=== PATIENT | female | born 1955 | race Caucasian/White ===

== ENCOUNTER 2019-03-24 12:10 | Emergency (ER) | payer MEDICARE, OTHER ==
[~2019-03-24] VITALS: Ht 152.4 cm; Wt 73.0 kg
[2019-03-24] MEDS ORDERED: PLEASE ENTER HEIGHT AND WEIGHT MC SCH (12:30)
[2019-03-24] MEDS ORDERED: ONDANSETRON 2MG/ML, 2ML IVPush ONE (12:30)
[2019-03-24] MEDS ORDERED: MORP60TA22 PO (12:35)
[2019-03-24] MEDS ORDERED: OXYC10TA6 PO (12:36)
[2019-03-24] MEDS ORDERED: HYDR12.517 PO (12:37)
[2019-03-24] MEDS ORDERED: TIZA4TAB PO (12:37)
[2019-03-24] MEDS ORDERED: MONT10TA9 PO (12:38)
[2019-03-24] MEDS ORDERED: ROSU20TA2 PO (12:38)
[2019-03-24] MEDS ORDERED: METO-99 PO (12:39)
[2019-03-24] MEDS ORDERED: BUPR-173 PO (12:39)
[2019-03-24] MEDS ORDERED: ALBU90AE IH (12:40)
--- NOTE | 2019-03-24 12:40 | NUR ---
PT TO XRAY AT THIS TIME.
[2019-03-24 12:52] LABS: BASOPHILS # (AUTO) 0.05 x10^3/uL (0-0.1); BASOPHILS % (AUTO) 1 % (0-1); EOSINOPHILS # (AUTO) 0.13 x10^3/uL (0-0.4); EOSINOPHILS % (AUTO) 2 % (1-7); LYMPHOCYTES % (AUTO) 14 % (22-44); MD NO; MEAN CORPUSCULAR HGB CONC 32.7 g/dL (32.4-35.8); MEAN CORPUSCULAR VOLUME 79.3 fL (80-100); MEAN PLATELET VOLUME 8.7 fL (7.4-10.4); MONOCYTES # (AUTO) 0.32 x10^3/uL (0.2-0.8); MONOCYTES % (AUTO) 4 % (2-9); NEUTROPHILS # (AUTO) 6.96 x10^3/uL (1.8-6.8); NEUTROPHILS % (AUTO) 80 % (42-75); PLATELET COUNT 279 x10^3/uL (130-400); RED CELL DISTRIBUTION WIDTH 15.6 % (9.6-15.2)
[2019-03-24 13:01] LABS: ALBUMIN 3.6 g/dL (3.4-5.0); ANION GAP 6 mmol/L (5-15); CALCIUM 9.3 mg/dL (8.5-10.1); CHLORIDE 108 mmol/L (98-107)
[2019-03-24 13:07] LABS: ALANINE AMINOTRANSFERASE 22 U/L (12-78); ALKALINE PHOSPHATASE 125 U/L (45-117); BILIRUBIN,TOTAL 0.3 mg/dL (0.2-1.0); TOTAL PROTEIN 8.3 g/dL (6.4-8.2); TROPONIN I < 0.015 ng/mL (0.000-0.045)
[2019-03-24 13:11] LABS: RAPID INFLUENZA A Negative (Negative); RAPID INFLUENZA B Negative (Negative)
[2019-03-24 13:37] VITALS: BP 69/69
--- NOTE | 2019-03-24 13:37 | NUR ---
PT RESTING IN [facility], UNABLE TO OBTAIN IV ACCESS AFTER MULT ATTEMPTS AT THIS TIME. RN TO GET US PLACEMENT FOR IV
[2019-03-24] MEDS ORDERED: ONDANSETRON 2MG/ML, 2ML ONE (14:01)
== END 2019-03-24 14:33 | disposition home or self-care (01) ==
LOC: ED 14:10
DX: A08.4 Viral intestinal infection, unspecified (principal); I25.2 Old myocardial infarction; I10 Essential (primary) hypertension; K21.9 Gastro-esophageal reflux disease without esophagitis; J44.9 Chronic obstructive pulmonary disease, unspecified
CPT/HCPCS: 36415; 74022; 80053; 83690; 84484; 85025; 87400; 93005; 99284

== ENCOUNTER 2019-11-12 12:42 | Emergency (ER) | payer MEDICARE ==
[~2019-11-12] VITALS: Ht 152.4 cm; Wt 77.0 kg
[~2019-11-12 12:42] MED LIST: ALBU90AE IH; BUPR-173 PO; HYDR12.517 PO; METO-99 PO; MONT10TA9 PO; MORP60TA22 PO; OXYC10TA6 PO; ROSU20TA2 PO; TIZA4TAB2 PO
[2019-11-12 13:21] LABS: BASOPHILS # (AUTO) 0.05 x10^3/uL (0-0.1); BASOPHILS % (AUTO) 1 % (0-1); EOSINOPHILS # (AUTO) 0.09 x10^3/uL (0-0.4); EOSINOPHILS % (AUTO) 1 % (1-7); LYMPHOCYTES # (AUTO) 1.62 x10^3/uL (1-3.4); LYMPHOCYTES % (AUTO) 19 % (22-44); MD NO; MEAN CORPUSCULAR HEMOGLOBIN 26.8 pg (27.0-34.8); MEAN CORPUSCULAR HGB CONC 31.8 g/dL (32.4-35.8); MEAN PLATELET VOLUME 8.6 fL (7.4-10.4); MONOCYTES % (AUTO) 6 % (2-9); NEUTROPHILS # (AUTO) 6.43 x10^3/uL (1.8-6.8); NEUTROPHILS % (AUTO) 74 % (42-75); PLATELET COUNT 311 x10^3/uL (130-400); RED BLOOD COUNT 5.61 x10^6/uL (3.82-5.3); RED CELL DISTRIBUTION WIDTH 14.7 % (9.6-15.2)
[2019-11-12 13:33] LABS: ALANINE AMINOTRANSFERASE 22 U/L (12-78); ALBUMIN 3.6 g/dL (3.4-5.0); ANION GAP 6 mmol/L (5-15); CALCIUM 9.4 mg/dL (8.5-10.1); CHLORIDE 106 mmol/L (98-107)
[2019-11-12 13:37] LABS: ALKALINE PHOSPHATASE 134 U/L (45-117); BILIRUBIN,TOTAL 0.4 mg/dL (0.2-1.0); TOTAL PROTEIN 8.6 g/dL (6.4-8.2); TROPONIN I < 0.015 ng/mL (0.000-0.045)
--- NOTE | 2019-11-12 14:05 | NUR ---
Pt to 25 from lobby
--- NOTE | 2019-11-12 14:25 | NUR ---
PT PRESENTING TO ER FOR NECK AND SHOULDER PAIN THAT STARTED YESTERDAY AFTER FEELING A POP, RADIATING TO LOWER SKULL CAUSING RIVERO. BURNING CP MID UPPER CHEST INTERMITTENT TODAY. N/V ALSO MID LOWER ABD CRAMPING, LBM TODAY, NORMAL. PT STS PAIN PUMP IN PLACE BUT NOT HELPING CURRENT PAIN. CONNECTED TO ALL MONITORING, HTN AT THIS TIME. FAMILY AT BEDSIDE. CALL LIGHT WITHIN REACH. MD AT BEDSIDE FOR ASSESSMENT. AWAITING FURTHER ORDERS AT THIS TIME. PIT ORDERS COMPLETED.
--- NOTE | 2019-11-12 14:32 | NUR ---
ONE BOUT OF VOMITTING IN ROOM, UPDATEDMIGUEL REQUESTED.
[2019-11-12] MEDS ORDERED: ONDANSETRON ODT 4 MG ONE (14:35)
[2019-11-12] MEDS ORDERED: HYDROmorphone 1 MG/ML, 1ML INJ ONE (14:36)
--- NOTE | 2019-11-12 14:41 | NUR ---
PT MEDICATED PER MAR FOR PAIN AND NAUSEA. WILL CONTINUE TO MONITOR
[2019-11-12] MEDS ORDERED: ONDANSETRON ODT 4 MG PO ONE (15:00)
[2019-11-12] MEDS ORDERED: HYDROmorphone 2 MG/ML, 1ML IM ONE (15:00)
--- NOTE | 2019-11-12 15:47 | NUR ---
TASK RN: BEDSIDE REPORT TO DAMIEN ACUÑA.
--- NOTE | 2019-11-12 15:57 | NUR ---
PT SLEEPING IN ROOM WITH FAMILY AT BEDSIDE, STS NAUSEA AND RIVERO ARE MUCH BETTER AFTER MEDS. MD UPDATED, AWAITING RECHECK
[2019-11-12 16:10] VITALS: BP 140/54
== END 2019-11-12 16:23 | disposition home or self-care (01) ==
LOC: ED 16:00
DX: G43.909 Migraine, unspecified, not intractable, without status migrainosus (principal); M54.2 Cervicalgia; I10 Essential (primary) hypertension; J44.9 Chronic obstructive pulmonary disease, unspecified; K21.9 Gastro-esophageal reflux disease without esophagitis; I25.2 Old myocardial infarction
CPT/HCPCS: 36415; 70450; 71046; 72125; 80053; 84484; 85025; 93005; 96372; 99284; J1170; Q0162

== ENCOUNTER 2021-03-19 10:56 | Emergency (ER) | payer MEDICARE ==
[~2021-03-19] VITALS: Ht 162.6 cm; Wt 92.8 kg
[~2021-03-19 10:56] MED LIST changes: +MONT10TA17 PO; -MONT10TA9 PO
[2021-03-19] MEDS ORDERED: SODIUM CHLORIDE FLUSH 10ML SYR IVF ONE (11:30)
[2021-03-19] MEDS ORDERED: HYDROmorphone 1 MG/ML, 1ML INJ IV ONE (11:30)
[2021-03-19] MEDS ORDERED: ONDANSETRON 2MG/ML, 2ML IVPush ONE ×2 (11:30→16:00)
[2021-03-19] MEDS ORDERED: SODIUM CHLORIDE 0.9% 1,000ML IVBOLUS ONE (11:30)
--- NOTE | 2021-03-19 11:33 | NUR ---
PT TO XRAY.
[2021-03-19] MEDS ORDERED: ONDANSETRON 2MG/ML, 2ML ONE ×2 (11:45→15:44)
[2021-03-19] MEDS ORDERED: HYDROmorphone 2 MG/ML, 1ML ONE (11:45)
--- NOTE | 2021-03-19 11:50 | NUR ---
PT BACK FROM XRAY. PT MEDICATED PER ERP ORDER FOR PAIN AND NAUSEA, NS BOLUS INFUSING. CALL LIGHT WITHIN REACH, FAMILY AT BS.
--- NOTE | 2021-03-19 11:59 | NUR ---
OXYGEN PLACED AT 3LITERS VIA NC AFTER PULSE OX DIPPED TO 80%. IMPROVEMENT TO 97% AT THIS TIME. PT CONTINUES TO BE NAUSEATED, ERP NOTIFIED. LAB IN TO DRAW.
[2021-03-19 12:00] LABS: MICROSCOPIC AUTO
[2021-03-19 12:11] LABS: BASOPHILS % (AUTO) 1 % (0-1); EOSINOPHILS % (AUTO) 0 % (1-7); LYMPHOCYTES % (AUTO) 13 % (22-44); MEAN CORPUSCULAR HEMOGLOBIN 26.5 pg (27.0-34.8); MEAN CORPUSCULAR HGB CONC 32.5 g/dL (32.4-35.8); MEAN PLATELET VOLUME 8.3 fL (7.4-10.4); MONOCYTES % (AUTO) 4 % (2-9); NEUTROPHILS % (AUTO) 82 % (42-75); PLATELET COUNT 294 x10^3/uL (130-400); RED BLOOD COUNT 5.44 x10^6/uL (3.82-5.3); RED CELL DISTRIBUTION WIDTH 15.1 % (9.6-15.2)
[2021-03-19 12:15] LABS: MD NO
[2021-03-19 12:22] LABS: ALANINE AMINOTRANSFERASE 20 U/L (12-78); ALBUMIN 3.3 g/dL (3.4-5.0); ANION GAP 4 mmol/L (5-15); CALCIUM 9.1 mg/dL (8.5-10.1); CHLORIDE 105 mmol/L (98-107)
[2021-03-19 12:27] LABS: ALKALINE PHOSPHATASE 133 U/L (45-117); BILIRUBIN,TOTAL 0.5 mg/dL (0.2-1.0); CREATININE 0.87 mg/dL (0.55-1.02); TOTAL PROTEIN 8.2 g/dL (6.4-8.2); TROPONIN I < 0.015 ng/mL (0.000-0.045)
--- NOTE | 2021-03-19 12:33 | NUR ---
ATTEMPT TO CALL REPORT, RECEIVING RN IN RAPID RESPONSE, WILL CALL BACK.
[2021-03-19] MEDS ORDERED: POTASSIUM CHLORIDE 20 MEQ PACKET PO ONE (13:00)
[2021-03-19] MEDS ORDERED: PROMETHAZINE 25 MG/ML, 1ML IM ONE (13:00)
[2021-03-19] MEDS ORDERED: POTASSIUM CHLORIDE 20 MEQ PACKET ONE (13:12)
[2021-03-19] MEDS ORDERED: PROMETHAZINE 25 MG/ML, 1ML ONE (13:12)
--- NOTE | 2021-03-19 13:25 | NUR ---
PT UP/AMBULATORY TO BR. PT MEDICATED FOR PERSISTENT PAIN, N/V, HTN. CALL LIGHT WITHIN REACH, FAMILY AT BS
--- NOTE | 2021-03-19 14:01 | NUR ---
PT FEELING BETTER, LESS PAIN AND NAUSEA, ABLE TO GET SOME PO MEDS DOWN. VSS/UPDATED IN COMPUTER. CALL LIGHT WITHIN REACH.
--- NOTE | 2021-03-19 14:49 | NUR ---
ADD ON ORDER FOR CT AND MED.
[2021-03-19] MEDS ORDERED: hydrALAzine 20 MG/ML, 1ML IV ONE (15:00)
[2021-03-19 15:42] VITALS: BP 154/70
--- NOTE | 2021-03-19 15:43 | NUR ---
CT READ BACK, PT FOR RECHECK.
== END 2021-03-19 17:05 | disposition home or self-care (01) ==
LOC: ED 12:22
DX: R10.84 Generalized abdominal pain (principal); G89.29 Other chronic pain; M54.5 Low back pain; R07.89 Other chest pain; F11.20 Opioid dependence, uncomplicated; R51.9 Headache, unspecified; R11.10 Vomiting, unspecified; I10 Essential (primary) hypertension; K21.9 Gastro-esophageal reflux disease without esophagitis; I25.2 Old myocardial infarction; J44.9 Chronic obstructive pulmonary disease, unspecified; R94.31 Abnormal electrocardiogram [ECG] [EKG]
CPT/HCPCS: 36415; 70450; 74022; 80053; 81001; 83605; 83690; 84484; 85025; 87086; 93005; 96372; 96374; 96375; 96376; 99285; J1170; J2405; J2550; J7030